=== PATIENT | female | born 1970 | race Asian ===

== ENCOUNTER 2016-12-02 08:37 | Emergency (ER) | payer OTHER ==
[2016-12-02 08:47] VITALS: BP 160/81; PULSE 80; TEMP 98; BMI 20.7
--- NOTE | 2016-12-02 09:06 | PDOC ---
Attending Attestation - Resident Resident Name: GigiMelissa - ED Attending Attestation I have performed the following: I have examined & evaluated the patient, The case was reviewed & discussed with the resident, I agree w/resident's findings & plan, Exceptions are as noted - HPI HPI: 46 yo F no PMH presents with abrupt onset chest pain at 6am this morning. She states that she was reaching for something in a cabinet when she got the pain. The pain has been intermittent since then, pleuritic at times. No recent diaphoresis, N/V, SOB, leg swelling. No prior similar symptoms. No prior cardiac workup. No FH of heart disease. - Physicial Exam PE: GENERAL: Awake, alert, and fully oriented, in no acute distress HEAD: No signs of trauma EYES: PERRLA, EOMI, sclera anicteric, conjunctiva clear ENT: Auricles normal inspection, hearing grossly normal, nares patent, oropharynx clear without exudates. Moist mucosa NECK: Normal ROM, supple, no lymphadenopathy, JVD, or masses LUNGS: Breath sounds equal, clear to auscultation bilaterally. No wheezes, and no crackles HEART: Regular rate and rhythm, normal S1 and S2, no murmurs, rubs or gallops ABDOMEN: Soft, nontender, normoactive bowel sounds. No guarding, no rebound. No masses EXTREMITIES: Normal range of motion, no edema. No clubbing or cyanosis. No cords, erythema, or tenderness NEUROLOGICAL: Cranial nerves II through XII grossly intact. Normal speech, normal gait SKIN: Warm, Dry, normal turgor, no rashes or lesions noted. - Medical Decision Making 46 yo F no PMH presents with abrupt onset sharp 8/10 chest pain. Pain is not reproducible on exam. Low risk for ACS and PE by clinical eval, however, noted to have pleuritic pain on initial eval. Will obtain labs, CXR. Likely DC home if wnl. 12/02/16 12:33 D-dimer positive. Will obtain CTA. 12/02/16 13:49 CTA negative for PE. Patient stable for DC home. Heart Score/ECG Review - ECG Impressions Comment:: EKG read 08:43- NSR 78 bpm, inv T aVL and V2.
--- NOTE | 2016-12-02 09:13 | PDOC ---
History of Present Illness - General Chief Complaint: Chest Pain Stated Complaint: CHEST PAIN, CONGESTION Time Seen by Provider: 12/02/16 08:53 - History of Present Illness Initial Comments: 46 year old female with PMH of asthma presenting with chest pain since 6:00 AM that began while reaching for a dish in her upper cabinet. The pain began to resolve while sitting briefly but returned soon after while still sitting. She describes the pain as an 8/10 non-radiating pleuritic pressure (worse with deep inspiration) that is non radiating and does not co-present with diaphoresis, nausea, or vomiting. Denies fevers, chills, nausea, vomiting, diarrhea, palpitations, or other sick symptoms. 12/02/16 09:50 Past History - Past Medical History Allergies/Adverse Reactions: Allergies Allergy/AdvReac Type Severity Reaction Status Date / Time No Known Allergies Allergy Verified 12/02/16 08:44 Home Medications: Ambulatory Orders Budesonide/Formeterol Fumarate [SYMBICORT 160/4.5mcg -] 1 puff IH PRN 12/02/16 Ibuprofen 400 mg PO BID PRN #14 tablet 12/02/16 Asthma: Yes - Psycho/Social/Smoking Cessation Hx Suicidal Ideation: No Smoking History: Never smoked Review of Systems - Review of Systems Constitutional: No: Chills, Diaphoresis, Fever, Loss of Appetite HEENTM: No: Eye Pain, Blurred Vision Respiratory: No: Cough, Orthopnea, Shortness of Breath, SOB with Exertion, SOB at Rest Cardiac (ROS): Yes: Chest Pain. No: Edema, Irregular Heart Rate, Palpitations ABD/GI: No: Constipated, Diarrhea, Nausea, Vomiting : No: Dysuria, Discharge, Hematuria Integumentary: No: Bruising, Dryness, Erythema Neurological: No: Headache, Numbness, Paresthesia *Physical Exam - Vital Signs Last Vital Signs Temp Pulse Resp BP Pulse Ox 98 F 80 19 160/81 100 12/02/16 08:44 12/02/16 08:44 12/02/16 08:44 12/02/16 08:44 12/02/16 08:44 - Physical Exam General Appearance: Yes: Nourished, Appropriately Dressed. No: Apparent Distress HEENT: positive: EOMI, RONAN, Normal ENT Inspection, Normal Voice Neck: positive: Trachea midline, Normal Thyroid, Supple. negative: Tender, Rigid Respiratory/Chest: positive: Lungs Clear, Normal Breath Sounds. negative: Chest Tender, Respiratory Distress, Accessory Muscle Use Cardiovascular: positive: Regular Rhythm, Regular Rate, S1, S2. negative: Edema , Murmur Gastrointestinal/Abdominal: positive: Normal Bowel Sounds, Flat, Soft. negative : Tender, Organomegaly Musculoskeletal: positive: Normal Inspection Neurologic: positive: Fully Oriented, Alert, Normal Mood/Affect ED Treatment Course - LABORATORY CBC & Chemistry Diagram: 12/02/16 10:32 12/02/16 10:32 Medical Decision Making - Medical Decision Making 46 year old healthy female presenting with pleuritic chest pain. EKG showing some T wave inversion sin V2 with flattening in V3 without previous EKG to compare. Could possibly be a lead placement issue. Will repeat the EKG, send D- dimer, cardiac panel, CBC, U-preg, CXR, and CMP 12/02/16 09:50 12/02/16 11:50 U preg negative, labs WNL, trop neg. CXR order placed and D-dimer still pending. 12/02/16 12:38 D-Dimer returned slightly elevated to 245 so will pursue CTA chest. 12/02/16 13:34 CTA chest negative but did show signs of COPD so results of scan relayed to patient and she will be discharged home as this is most likely a musculoskeletal pain. 12/02/16 13:35 *DC/Admit/Observation/Transfer Diagnosis at time of Disposition: Chest pain - Discharge Dispostion Disposition: HOME Condition at time of disposition: Improved Admit: No - Prescriptions Prescriptions: Ibuprofen 400 mg PO BID PRN #14 tablet PRN Reason: Pain - Patient Instructions Printed Discharge Instructions: DI for Atypical Chest Pain Additional Instructions: You were seen for chest pain. We looked at your heart enzymes, an EKG and did a CT of your chest which were all negative for anything abnormal. We do not believe that this is your heart or your lungs. We prescribed you some ibuprofen for your pain. This is most likely a muscular pain in your chest that will get better with time. Please return if you have worsening chest pain despite the use of ibuprofen or if you feel as if you are going to pass out. - Attestations Physician Attestion: 12/02/16 13:40 I, Dr. Melissa Yu, attest that this document has been prepared under my direction and personally reviewed by me in its entirety. I further attest, that it accurately reflects all work, treatment, procedures and medical decision -making performed by me. 12/02/16 13:52
--- NOTE | 2016-12-02 09:29 | EKG ---
Test Reason : Blood Pressure : / mmHG Vent. Rate : 078 BPM Atrial Rate : 078 BPM P-R Int : 122 ms QRS Dur : 072 ms QT Int : 386 ms P-R-T Axes : 058 014 060 degrees QTc Int : 440 ms NORMAL SINUS RHYTHM NONSPECIFIC T WAVE ABNORMALITY ABNORMAL ECG NO PREVIOUS ECGS AVAILABLE Confirmed by RAYA MARQUES MD ([id number]) on 12/02/2016 9:28:55 AM Referred By: Confirmed By:RAYA MARQUES MD
[2016-12-02 10:55] LABS: EOSINOPHIL 2.2 % (0-4.5); MCH 29.5 pg (25.7-33.7); MCHC 32.7 g/dl (32.0-36.0); MEAN PLT VOLUME 9.2 fl (7.5-11.1); NEUTROPHILS 56.7 % (42.8-82.8); PLATELET COUNT 229 K/MM3 (134-434); RDW 13.5 % (11.6-15.6)
[2016-12-02 11:15] LABS: ALBUMIN 4.1 g/dl (3.4-5.0); ANION GAP 8 (8-16); CALCIUM 9.2 mg/dL (8.5-10.1); CO2 25 mmol/L (21-32); GLUCOSE,RANDOM 88 mg/dL (74-106); SGOT/AST 19 U/L (15-37); SGPT/ALT 19 U/L (12-78)
[2016-12-02 11:20] LABS: ALK PHOS 63 U/L (45-117); BILIRUBIN,TOTAL 0.6 mg/dL (0.2-1.0); CPK 80 IU/L (26-192); CREATININE 0.8 mg/dL (0.55-1.02); TOT PROT 8.3 g/dl (6.4-8.2); TROPONIN I < 0.02 ng/ml (0.00-0.05)
--- NOTE | 2016-12-03 13:31 | EKG ---
Test Reason : Blood Pressure : / mmHG Vent. Rate : 070 BPM Atrial Rate : 070 BPM P-R Int : 144 ms QRS Dur : 070 ms QT Int : 410 ms P-R-T Axes : 068 002 058 degrees QTc Int : 442 ms NORMAL SINUS RHYTHM NONSPECIFIC T WAVE ABNORMALITY ABNORMAL ECG WHEN COMPARED WITH ECG OF 02-DEC-2016 08:44, NO SIGNIFICANT CHANGE WAS FOUND Confirmed by LETICIA JOHNSON MD ([id number]) on 12/03/2016 1:30:45 PM Referred By: Confirmed By:LETICIA JOHNSON MD
== END 2016-12-02 14:19 | disposition home or self-care (01) ==
LOC: JER 08:37
DX: R07.9 Chest pain, unspecified (principal); J45.909 Unspecified asthma, uncomplicated
CPT/HCPCS: 36415; 71275-TC; 80053; 84484; 84703; 85025; 85379; 93005; 93010; 99285-25